=== PATIENT | female | born 1960 | race Caucasian/White ===

== ENCOUNTER 2017-12-17 22:24 | Emergency (ER) | payer MEDICAID ==
[~2017-12-17] VITALS: Ht 157.5 cm; Wt 72.0 kg
[~2017-12-17 22:24] MED LIST: ALBU6.7H INH; GABA600T2 PO; HYDR-3965 PO; MIRT15TA3 PO; ONDA8TAB9 PO; PARO30TA4 PO; PROP40TA72 PO; SUMA100T PO
[2017-12-17] MEDS ORDERED: HYDROcodone/acetaminophen 10/325mg tab PO ONE (23:45)
[2017-12-18] MEDS ORDERED: HYDR-569 PO (01:05)
[2017-12-18] MEDS ORDERED: IBUP-1984 PO (01:05)
[2017-12-18 01:27] VITALS: BP 148/87
== END 2017-12-18 01:30 | disposition home or self-care (01) ==
LOC: ER 22:25
DX: M17.12 Unilateral primary osteoarthritis, left knee (principal); M25.552 Pain in left hip; Z88.5 Allergy status to narcotic agent; Z79.899 Other long term (current) drug therapy
CPT/HCPCS: 73501; 73564; 99284

== ENCOUNTER 2018-02-06 18:28 | Emergency (ER) | payer MEDICAID ==
[~2018-02-06] VITALS: Ht 157.5 cm; Wt 64.2 kg
[~2018-02-06 18:28] MED LIST changes: -ALBU6.7H INH; +LORA1TAB PO; -PROP40TA72 PO
[2018-02-06 18:56] LABS: BASOPHILS % (AUTO) 0.3 % (0-1); EOSINOPHILS # (AUTO) 0.3 X10'3 (0-0.9); EOSINOPHILS % (AUTO) 2.3 % (0-6); HEMATOCRIT 39.2 % (35.0-45.0); HEMOGLOBIN 13.2 g/dl (12.0-16.0); LYMPHOCYTES # (AUTO) 2.8 X10'3 (1.1-4.8); LYMPHOCYTES % (AUTO) 22.7 % (21-51); MEAN CORPUSCULAR HEMOGLOBIN 28.8 PG (27.0-31.0); MEAN CORPUSCULAR HGB CONC 33.7 % (33.0-36.5); MEAN CORPUSCULAR VOLUME 85.6 FL (78-98); MEAN PLATELET VOLUME 7.5 FL (7.4-10.4); MONOCYTES % (AUTO) 8.3 % (2-12); NEUTROPHILS # (AUTO) 8.1 X10'3 (1.8-7.7); NEUTROPHILS % (AUTO) 66.4 % (42-75); PLATELET COUNT 273 X10'3 (140-440); RED BLOOD COUNT 4.58 X10'6 (4.20-5.60); RED CELL DISTRIBUTION WIDTH 16.7 % (11.5-14.5); WHITE BLOOD COUNT 12.2 X10'3 (4.5-11.0)
[2018-02-06 19:08] LABS: INR 0.9 INR; PARTIAL THROMBOPLASTIN TIME 27 SECONDS (22-32); PROTHROMBIN TIME 9.6 SECONDS (9.0-12.0)
[2018-02-06 19:13] LABS: ALANINE AMINOTRANSFERASE 54 U/L (12-78); ALBUMIN 3.4 G/DL (3.4-5.0); ALBUMIN/GLOBULIN RATIO 0.8 (1.1-1.5); ALKALINE PHOSPHATASE 147 IU/L (46-116); ANION GAP 12 (8-16); ASPARTATE AMINO TRANSFERASE 29 U/L (10-37); BILIRUBIN,TOTAL 0.3 MG/DL (0.1-1.0); BLOOD UREA NITROGEN 8 MG/DL (7-18); BUN/CREATININE RATIO 8.5 (6.6-38.0); CALCIUM 9.5 MG/DL (8.5-10.1); CHLORIDE 100 MMOL/L (99-107); CREATININE 0.94 MG/DL (0.40-0.90); GLUCOSE 96 MG/DL (70-104); POTASSIUM 3.6 MMOL/L (3.5-5.1); SODIUM 136 MMOL/L (135-145); TOTAL CARBON DIOXIDE 24.1 MMOL/L (24-32); TOTAL PROTEIN 7.6 G/DL (6.4-8.2); eGFR 62 ML/MIN
[2018-02-06 19:24] LABS: ETHANOL < 0.010 GM/DL (0.0-0.010)
[2018-02-06 19:32] LABS: CLARITY,URINE CLEAR (Clear); COLOR,URINE YELLOW (Yellow); GLUCOSE, URINE NEGATIVE (Neg); KETONES,URINE 15 mg/dl (Neg); LEUKOCYTE ESTERASE ,URINE SMALL (Neg); NITRITES, URINE NEGATIVE (Neg); OCCULT BLOOD,URINE TRACE-INTACT (Neg); PH,URINE 5.5 (4.8-8.0); PROTEIN,URINE TRACE mg/dl (Neg)
[2018-02-06 19:42] LABS: URINE AMPHETAMINE SCREEN POSITIVE (Neg); URINE BARBITUATE SCREEN NEGATIVE (Neg); URINE BENZODIAZEPINES SCREEN NEGATIVE (Neg); URINE CANNABINOID SCREEN NEGATIVE (Neg); URINE COCAINE SCREEN NEGATIVE (Neg); URINE METHADONE SCREEN NEGATIVE (Neg); URINE OPIATE SCREEN POSITIVE (Neg); URINE PHENCYCLIDINE SCREEN NEGATIVE (Neg)
[2018-02-06 19:55] LABS: UA COLLECTION TYPE CLN CATCH MIDSTREAM
[2018-02-06 19:57] LABS: WBC,URINE 0-4 /HPF (0-4)
[2018-02-06 19:58] LABS: BACTERIA,URINE FEW /HPF (Neg); SQUAMOUS EPITHELIAL CELL,UR FEW /LPF (FEW)
[2018-02-06 20:23] VITALS: BP 119/72
[2018-02-06] MEDS ORDERED: BACDS PO (20:43)
== END 2018-02-06 20:50 | disposition home or self-care (01) ==
LOC: ER 18:29
DX: S21.002A Unspecified open wound of left breast, initial encounter (principal); J44.1 Chronic obstructive pulmonary disease with (acute) exacerbation; F15.10 Other stimulant abuse, uncomplicated; E86.0 Dehydration; I10 Essential (primary) hypertension; Z88.5 Allergy status to narcotic agent; Z79.899 Other long term (current) drug therapy; X08.8XXA Exposure to other specified smoke, fire and flames, initial encounter; Y93.89 Activity, other specified; Y92.89 Other specified places as the place of occurrence of the external cause; Y99.8 Other external cause status
CPT/HCPCS: 36415; 71045; 80053; 80305; 80320; 81001; 84484; 85025; 85610; 85730; 93005; 99285

== ENCOUNTER 2018-05-22 05:55 | Day surgery (SDC) | payer MEDICAID ==
[2018-05-16 12:06] LABS: BASOPHILS # (AUTO) 0.1 X10'3 (0-0.2); BASOPHILS % (AUTO) 0.5 % (0-1); EOSINOPHILS # (AUTO) 0.4 X10'3 (0-0.9); EOSINOPHILS % (AUTO) 3.6 % (0-6); LYMPHOCYTES # (AUTO) 3.2 X10'3 (1.1-4.8); LYMPHOCYTES % (AUTO) 27.7 % (21-51); MEAN CORPUSCULAR HEMOGLOBIN 29.8 PG (27.0-31.0); MEAN CORPUSCULAR VOLUME 90.3 FL (78-98); MEAN PLATELET VOLUME 7.7 FL (7.4-10.4); MONOCYTES % (AUTO) 8.6 % (2-12); NEUTROPHILS # (AUTO) 6.9 X10'3 (1.8-7.7); NEUTROPHILS % (AUTO) 59.6 % (42-75); PRE OP HEMATOCRIT 40.3 % (35.0-45.0); PRE OP HEMOGLOBIN 13.3 g/dL (12.0-16.0); PRE OP PLATELET COUNT 250 X10'3 (140-440); RED BLOOD COUNT 4.46 X10'6 (4.20-5.60); RED CELL DISTRIBUTION WIDTH 14.5 % (11.5-14.5)
[2018-05-16 12:23] LABS: PRE OP INR 0.9 INR; PRE OP PROTIME 9.6 SECONDS (9.0-12.0)
[2018-05-16 12:24] LABS: ALBUMIN 3.5 G/DL (3.4-5.0); ALBUMIN/GLOBULIN RATIO 0.9 (1.1-1.5); ALKALINE PHOSPHATASE 109 IU/L (46-116); BLOOD UREA NITROGEN 11 MG/DL (7-18); BUN/CREATININE RATIO 14.9 (6.6-38.0); CALCIUM 9.3 MG/DL (8.5-10.1); CHLORIDE 104 MMOL/L (99-107); CREATININE 0.74 MG/DL (0.40-0.90); PRE OP ALT 23 U/L (30-65); PRE OP ANION GAP 9 (8-16); PRE OP AST 17 U/L (10-37); PRE OP BILIRUB, TOTAL 0.2 MG/DL (0.0-1.0); PRE OP GLUCOSE 78 MG/DL (70-104); PRE OP POTASSIUM 4.3 MMOL/L (3.4-5.1); PRE OP SODIUM 141 MMOL/L (135-145); TOTAL CARBON DIOXIDE 28.3 MMOL/L (24-32); TOTAL PROTEIN 7.4 G/DL (6.4-8.2); eGFR 81 ML/MIN
[~2018-05-22] VITALS: Ht 154.9 cm; Wt 63.2 kg
[2018-05-22] VITALS (9 sets, daily range): BP systolic 101–122; BP diastolic 65–94
[~2018-05-22 05:55] MED LIST changes: +ASPI81TA46 PO; +ATOR10TA70 PO; -GABA600T2 PO; -LORA1TAB PO; -MIRT15TA3 PO; -ONDA8TAB9 PO; +cefazolin/dext.iso 2gm/100 ML IV ONE; +famotidine 20mg tablet PO ONE; +ringers solution, lacted 1,000 ML IV SCH
[2018-05-22] MEDS ORDERED: LIDOcaine 1% (10mg/ml) 2ml vial ONE (06:10)
[2018-05-22] MEDS ORDERED: BUPIVAcaine/PF 2.5mg/ml (0.25%) 10ml vial ONE (06:41)
[2018-05-22] MEDS ORDERED: ROPIVAcaine 0.5% (5mg/ml) 30ml vial ONE (06:41)
[2018-05-22] MEDS ORDERED: LIDOcaine 1% 30ml preserv. free vial ONE ×2 (06:41→06:42)
[2018-05-22] MEDS ORDERED: LIDOcaine 0.5% W/epiNEPHrine 1:200,000 50ml vial IJ ONE (06:41)
[2018-05-22] MEDS ORDERED: epiNEPHrine 1 mg/ml inj ONE (06:42)
[2018-05-22] MEDS ORDERED: ketorolac trometh. 30mg/ml inj. ONE (06:43)
[2018-05-22] MEDS ORDERED: albuterol 2.5 MG/3 ML nebule NEB ONE (06:55)
[2018-05-22] MEDS ORDERED: fentaNYL/PF 50MCG/1 ML 2ML syringe ONE ×2 (07:19→07:39)
[2018-05-22] MEDS ORDERED: midazolam 2 mg/2 ml injection ONE (07:19)
[2018-05-22] MEDS ORDERED: meperidine/PF 50mg/ml syringe ONE (08:06)
[2018-05-22] MEDS ORDERED: morphine 4 MG/ML inj SYRINge IV PRN ×2 (08:15)
[2018-05-22] MEDS ORDERED: ringers solution, lacted 1,000 ML IV SCH (08:15)
[2018-05-22] MEDS ORDERED: ondansetron/PF 4mg/2ml inj IV PRN (08:15)
[2018-05-22] MEDS ORDERED: proCHLORperazine 10 MG/2 ml inj IV PRN (08:15)
[2018-05-22] MEDS ORDERED: meperidine/PF 25mg/ml syringe IV PRN ×3 (08:15)
[2018-05-22] MEDS ORDERED: propofol inj 20 ML IV ONE (08:18)
[2018-05-22] MEDS ORDERED: HYDROcodone/acetaminophen 10/325mg tab PO PRN (08:25)
== END 2018-05-22 09:18 | disposition home or self-care (01) ==
LOC: PAS 05:55
PROVIDERS: ATTEND Orthopaedic Surgery
DX: M23.222 Derangement of posterior horn of medial meniscus due to old tear or injury, left knee (principal); M23.362 Other meniscus derangements, other lateral meniscus, left knee; M22.42 Chondromalacia patellae, left knee; F17.210 Nicotine dependence, cigarettes, uncomplicated; J44.9 Chronic obstructive pulmonary disease, unspecified; I25.2 Old myocardial infarction; F41.8 Other specified anxiety disorders; M19.90 Unspecified osteoarthritis, unspecified site; I25.10 Atherosclerotic heart disease of native coronary artery without angina pectoris; I10 Essential (primary) hypertension; F10.21 Alcohol dependence, in remission; F15.11 Other stimulant abuse, in remission; Z88.5 Allergy status to narcotic agent; Z79.82 Long term (current) use of aspirin; Z86.74 Personal history of sudden cardiac arrest; Z79.891 Long term (current) use of opiate analgesic; Z79.1 Long term (current) use of non-steroidal anti-inflammatories (NSAID); Z79.899 Other long term (current) drug therapy; Z98.890 Other specified postprocedural states
CPT/HCPCS: 29880; 36415; 80053; 85025; 85610; 85730; 94640; 94760; A6449; J0171; J0690; J1885; J2175; J2250; J2704; J3010; J3490; J7120; A7000; J2795; J7030

== ENCOUNTER 2018-08-27 11:17 | Inpatient (IN) | payer MEDICAID ==
[~2018-08-27] VITALS: Ht 157.5 cm; Wt 62.7 kg
[~2018-08-27 11:17] MED LIST changes: -cefazolin/dext.iso 2gm/100 ML IV ONE; -famotidine 20mg tablet PO ONE; -ringers solution, lacted 1,000 ML IV SCH
[2018-08-27] MEDS ORDERED: NO HOME MEDS (11:50)
[2018-08-27] MEDS ORDERED: aspirin 81mg tab.chew PO ONE (12:10)
[2018-08-27 12:23] LABS: BASOPHILS # (AUTO) 0.1 X10'3 (0-0.2); BASOPHILS % (AUTO) 0.9 % (0-1); EOSINOPHILS # (AUTO) 0.2 X10'3 (0-0.9); EOSINOPHILS % (AUTO) 1.3 % (0-6); HEMATOCRIT 44.8 % (35.0-45.0); HEMOGLOBIN 14.7 g/dl (12.0-16.0); MEAN CORPUSCULAR HEMOGLOBIN 30.1 PG (27.0-31.0); MEAN CORPUSCULAR HGB CONC 32.8 g/dL (33.0-36.5); MEAN CORPUSCULAR VOLUME 91.7 FL (78-98); MEAN PLATELET VOLUME 8.6 FL (7.4-10.4); MONOCYTES % (AUTO) 7.4 % (2-12); NEUTROPHILS # (AUTO) 8.1 X10'3 (1.8-7.7); NEUTROPHILS % (AUTO) 60.4 % (42-75); PLATELET COUNT 340 X10'3 (140-440); RED BLOOD COUNT 4.89 X10'6 (4.20-5.60); RED CELL DISTRIBUTION WIDTH 13.3 % (11.5-14.5); WHITE BLOOD COUNT 13.4 X10'3 (4.5-11.0)
[2018-08-27 12:34] LABS: ALANINE AMINOTRANSFERASE 47 U/L (12-78); ALBUMIN 3.7 G/DL (3.4-5.0); ALBUMIN/GLOBULIN RATIO 0.8 (1.1-1.5); ALKALINE PHOSPHATASE 112 IU/L (46-116); ANION GAP 11 (8-16); ASPARTATE AMINO TRANSFERASE 45 U/L (10-37); BILIRUBIN,TOTAL 0.2 MG/DL (0.1-1.0); BLOOD UREA NITROGEN 15 MG/DL (7-18); CALCIUM 9.7 MG/DL (8.5-10.1); CHLORIDE 102 MMOL/L (99-107); CREATININE 0.94 MG/DL (0.40-0.90); GLUCOSE 76 MG/DL (70-104); POTASSIUM 3.8 MMOL/L (3.5-5.1); SODIUM 138 MMOL/L (135-145); TOTAL CARBON DIOXIDE 24.9 MMOL/L (24-32); TOTAL PROTEIN 8.1 G/DL (6.4-8.2); eGFR 62 ML/MIN
[2018-08-27 12:40] LABS: MAGNESIUM 1.9 MG/DL (1.5-2.4)
--- NOTE | 2018-08-27 14:00 | NUR ---
MD Rodriguez states the pt can have a diet without caffiene ordered a heart healthy diet for the pt.
--- NOTE | 2018-08-27 14:02 | NUR ---
diet ordered for pt
[2018-08-27] MEDS ORDERED: magnesium 4gm in 100ml NS 100 ML IV PRN (15:45)
[2018-08-27] MEDS ORDERED: potassium Cl 20 mEq SR tablet PO PRN ×2 (15:45)
[2018-08-27] MEDS ORDERED: acetaminophen 325mg tablet PO PRN (15:45)
[2018-08-27] MEDS ORDERED: potassium Cl 40MEQ/NS 500ml 500 ML IV PRN ×2 (15:45)
[2018-08-27] MEDS ORDERED: magnesium 2GM in 50ml NS 50 ML IV PRN (15:45)
[2018-08-27] MEDS ORDERED: magnesium Cl slow-release 64mg tablet PO PRN (15:45)
[2018-08-27] MEDS ORDERED: ondansetron/PF 4mg/2ml inj IV PRN (15:45)
[2018-08-27 17:04] LABS: URINE AMPHETAMINE SCREEN NEGATIVE (Neg); URINE BARBITUATE SCREEN NEGATIVE (Neg); URINE BENZODIAZEPINES SCREEN NEGATIVE (Neg); URINE CANNABINOID SCREEN NEGATIVE (Neg); URINE COCAINE SCREEN NEGATIVE (Neg); URINE METHADONE SCREEN NEGATIVE (Neg); URINE OPIATE SCREEN NEGATIVE (Neg); URINE PHENCYCLIDINE SCREEN NEGATIVE (Neg)
[2018-08-27] MEDS ORDERED: nicotine 14mg patch - 24hr TD ONE (17:25)
[2018-08-27] MEDS: heparin, porcine 5000 units/ml vial SQ SCH (20:40)
[2018-08-27 21:28] VITALS: BP 133/65
[2018-08-28] VITALS: BP 99/63
[2018-08-28 00:28] LABS: BASOPHILS # (AUTO) 0.1 X10'3 (0-0.2); BASOPHILS % (AUTO) 0.6 % (0-1); EOSINOPHILS # (AUTO) 0.2 X10'3 (0-0.9); HEMATOCRIT 41.9 % (35.0-45.0); HEMOGLOBIN 13.9 g/dl (12.0-16.0); LYMPHOCYTES # (AUTO) 4.3 X10'3 (1.1-4.8); LYMPHOCYTES % (AUTO) 38.1 % (21-51); MEAN CORPUSCULAR HEMOGLOBIN 30.3 PG (27.0-31.0); MEAN CORPUSCULAR HGB CONC 33.1 g/dL (33.0-36.5); MEAN CORPUSCULAR VOLUME 91.7 FL (78-98); MONOCYTES # (AUTO) 0.9 X10'3 (0-0.9); MONOCYTES % (AUTO) 8.1 % (2-12); NEUTROPHILS # (AUTO) 5.9 X10'3 (1.8-7.7); NEUTROPHILS % (AUTO) 51.2 % (42-75); PLATELET COUNT 287 X10'3 (140-440); RED BLOOD COUNT 4.56 X10'6 (4.20-5.60); RED CELL DISTRIBUTION WIDTH 13.2 % (11.5-14.5); WHITE BLOOD COUNT 11.4 X10'3 (4.5-11.0)
[2018-08-28 00:40] LABS: ALBUMIN 3.3 G/DL (3.4-5.0); ANION GAP 8 (8-16); BLOOD UREA NITROGEN 17 MG/DL (7-18); CALCIUM 9.5 MG/DL (8.5-10.1); CHLORIDE 104 MMOL/L (99-107); CREATININE 1.13 MG/DL (0.40-0.90); GLUCOSE 81 MG/DL (70-104); SODIUM 139 MMOL/L (135-145); TOTAL CARBON DIOXIDE 27.3 MMOL/L (24-32); eGFR 50 ML/MIN
--- NOTE | 2018-08-28 06:44 | NUR ---
Problems reprioritized. Patient report given, questions answered & plan of care reviewed with MANUEL Carrizales.
--- NOTE | 2018-08-28 06:52 | NUR ---
Patient in room [facility]. I have received report from Michelle Rodriguez RN and had the opportunity to ask questions and assume patient care.
[2018-08-28 07:29] VITALS: BP 98/56
[2018-08-28] MEDS: heparin, porcine 5000 units/ml vial SQ SCH ×2 (07:53→19:38)
[2018-08-28] MEDS: K and/or MAG REPLACEMENT MC SCH (08:00)
[2018-08-28] MEDS ORDERED: aminophylline 250mg/10ml inj. IV PRN ×2 (08:20→14:55)
[2018-08-28] MEDS ORDERED: regadenoson 0.4mg/5ml syringe IV ONE ×2 (08:20→14:55)
[2018-08-28] MEDS ORDERED: nitroGLYCERIN 0.4mg SUBLingual tab SL PRN ×2 (08:20→14:55)
[2018-08-28] MEDS ORDERED: metoprolol tartrate 1mg/ml inj IV PRN ×2 (08:20→14:55)
[2018-08-28] MEDS ORDERED: aspirin 325mg tablet PO SCH (08:30)
[2018-08-28 11:00] VITALS: BP 96/64
[2018-08-28] MEDS: atorvastatin 20mg tablet PO SCH (11:13)
[2018-08-28] MEDS ORDERED: LISI2.5T2 PO (14:51)
[2018-08-28] MEDS ORDERED: ATOR20TA66 PO (14:51)
[2018-08-28] MEDS ORDERED: ASPI-1265 PO (14:51)
--- NOTE | 2018-08-28 18:30 | NUR ---
Patient in room [facility]. I have received report from All JACKSON and had the opportunity to ask questions and assume patient care. pt on her phone, no signs of distress. call light and frq used belongings within reach. IV intact. will continue to monitor.
[2018-08-28 20:00] VITALS: BP 95/65
[2018-08-29] VITALS (11 sets, daily range): BP systolic 89–128; BP diastolic 50–66
[2018-08-29 06:15] LABS: BASOPHILS % (AUTO) 0.3 % (0-1); EOSINOPHILS # (AUTO) 0.2 X10'3 (0-0.9); EOSINOPHILS % (AUTO) 1.9 % (0-6); HEMATOCRIT 40.5 % (35.0-45.0); HEMOGLOBIN 13.6 g/dl (12.0-16.0); LYMPHOCYTES # (AUTO) 2.8 X10'3 (1.1-4.8); MEAN CORPUSCULAR HEMOGLOBIN 30.2 PG (27.0-31.0); MEAN CORPUSCULAR HGB CONC 33.7 g/dL (33.0-36.5); MEAN CORPUSCULAR VOLUME 89.6 FL (78-98); MEAN PLATELET VOLUME 7.7 FL (7.4-10.4); MONOCYTES # (AUTO) 0.8 X10'3 (0-0.9); MONOCYTES % (AUTO) 7.6 % (2-12); NEUTROPHILS # (AUTO) 7.2 X10'3 (1.8-7.7); NEUTROPHILS % (AUTO) 65.2 % (42-75); PLATELET COUNT 269 X10'3 (140-440); RED BLOOD COUNT 4.52 X10'6 (4.20-5.60)
--- NOTE | 2018-08-29 06:34 | NUR ---
Problems reprioritized. Patient report given, questions answered & plan of care reviewed with All RN. no signs of distress, resting comfortable. call light and frq used belongings within reach. IV intact
--- NOTE | 2018-08-29 06:44 | NUR ---
Patient in room [facility]. I have received report from Vesna JACKSON and had the opportunity to ask questions and assume patient care. Patient sleeping at this time
[2018-08-29] MEDS ORDERED: midazolam 2 mg/2 ml injection ONE (07:22)
[2018-08-29] MEDS ORDERED: heparin 1,000unit/ml 10ml vial 10 ML ONE (07:22)
[2018-08-29] MEDS ORDERED: iohexol 350MG/ML 100ml bottle IV ONE (07:22)
[2018-08-29] MEDS ORDERED: fentaNYL/PF 50MCG/1 ML 2ML syringe ONE (07:22)
[2018-08-29] MEDS ORDERED: LIDOcaine 1% (10mg/ml)w/preservative injection 20ml MDV ONE (07:22)
[2018-08-29] MEDS ORDERED: iohexol 350 MG/ML 50ML vial IV ONE (07:22)
[2018-08-29] MEDS ORDERED: nitroGLYCERIN-Tridil 50MG/D5W 250 ML IV ONE (07:22)
[2018-08-29] MEDS: heparin, porcine 5000 units/ml vial SQ SCH (08:00)
[2018-08-29] MEDS: K and/or MAG REPLACEMENT MC SCH (08:00)
[2018-08-29 08:10] LABS: ALBUMIN 3.3 G/DL (3.4-5.0); ANION GAP 11 (8-16); BLOOD UREA NITROGEN 21 MG/DL (7-18); BUN/CREATININE RATIO 26.9 (6.6-38.0); CALCIUM 9.1 MG/DL (8.5-10.1); CHLORIDE 105 MMOL/L (99-107); CREATININE 0.78 MG/DL (0.40-0.90); GLUCOSE 83 MG/DL (70-104); MAGNESIUM 1.9 MG/DL (1.5-2.4); POTASSIUM 4.1 MMOL/L (3.5-5.1); SODIUM 140 MMOL/L (135-145); TOTAL CARBON DIOXIDE 24.4 MMOL/L (24-32); eGFR 76 ML/MIN
[2018-08-29] MEDS: aspirin 81mg tab.chew PO SCH (08:30)
[2018-08-29] MEDS: atorvastatin 20mg tablet PO SCH (08:57)
--- NOTE | 2018-08-29 18:39 | NUR ---
Problems reprioritized. Patient report given, questions answered & plan of care reviewed with Pat RN.
[2018-08-29] MEDS ORDERED: HYDROcodone/acetaminophen 5mg/325mg tablet PO PRN (23:40)
[2018-08-29] MEDS ORDERED: diphenhydrAMINE 25mg capsule PO PRN (23:40)
[2018-08-30 06:02] LABS: BASOPHILS # (AUTO) 0.1 X10'3 (0-0.2); BASOPHILS % (AUTO) 0.7 % (0-1); EOSINOPHILS # (AUTO) 0.2 X10'3 (0-0.9); EOSINOPHILS % (AUTO) 2.5 % (0-6); HEMATOCRIT 35.6 % (35.0-45.0); LYMPHOCYTES # (AUTO) 3.5 X10'3 (1.1-4.8); LYMPHOCYTES % (AUTO) 39.1 % (21-51); MEAN CORPUSCULAR HEMOGLOBIN 30.3 PG (27.0-31.0); MEAN CORPUSCULAR HGB CONC 33.7 g/dL (33.0-36.5); MEAN CORPUSCULAR VOLUME 89.8 FL (78-98); MEAN PLATELET VOLUME 7.7 FL (7.4-10.4); MONOCYTES % (AUTO) 10.9 % (2-12); NEUTROPHILS # (AUTO) 4.2 X10'3 (1.8-7.7); NEUTROPHILS % (AUTO) 46.8 % (42-75); PLATELET COUNT 215 X10'3 (140-440); RED BLOOD COUNT 3.96 X10'6 (4.20-5.60); RED CELL DISTRIBUTION WIDTH 13.9 % (11.5-14.5)
[2018-08-30 06:06] LABS: ALBUMIN 2.9 G/DL (3.4-5.0); ANION GAP 9 (8-16); BLOOD UREA NITROGEN 15 MG/DL (7-18); BUN/CREATININE RATIO 18.3 (6.6-38.0); CALCIUM 8.7 MG/DL (8.5-10.1); CHLORIDE 105 MMOL/L (99-107); CHOL/HDL RATIO 3.7 (0.00-4.99); CHOLESTEROL 156 MG/DL (0-200); CREATININE 0.82 MG/DL (0.40-0.90); GLUCOSE 90 MG/DL (70-104); HDL CHOLESTEROL 42 MG/DL (35-60); LDL CHOLESTEROL 106 MG/DL (50-100); MAGNESIUM 1.8 MG/DL (1.5-2.4); POTASSIUM 3.9 MMOL/L (3.5-5.1); SODIUM 139 MMOL/L (135-145); TOTAL CARBON DIOXIDE 24.7 MMOL/L (24-32); TRIGLYCERIDES 80 MG/DL (20-135); eGFR 72 ML/MIN
--- NOTE | 2018-08-30 06:30 | NUR ---
report given to MANUEL Duque
--- NOTE | 2018-08-30 07:30 | NUR ---
Unable to assess urine at this time. pt. has not voided. Denies any symptoms or pain and states normal voiding. Addendum: 08/30/18 at 0734 by Dunia Marie RN Amended: Links added.
[2018-08-30 08:00] VITALS: BP 96/54
[2018-08-30] MEDS: K and/or MAG REPLACEMENT MC SCH (08:00)
[2018-08-30] MEDS: atorvastatin 20mg tablet PO SCH (09:07)
[2018-08-30] MEDS: aspirin 81mg tab.chew PO SCH (09:07)
[2018-08-30 11:00] VITALS: BP 92/55
--- NOTE | 2018-08-30 13:30 | NUR ---
PT. DISCHARGED IN A STABLE CONDITION. REVIEWED DISCHARGE PAPERWORK WITH PT. DISCUSSED AFTERCARE OF ANGIOGRAM SITE. DISCUSS NEW MEDICATIONS, PRESCRIPTIONS CALLED INTO PHARMACY AT [facility] [place] [address]. PATIENT KNOWS TO FOLLOW UP WITH DR. ARREDONDO AND HAVE ANOTHER CT SCAN DONE OF CHEST. DISCUSSED SMOKING CESSATION AND TECHNIQUES. PT. TELE DISCONTINUED CLEANED AND RETURNED, IV DISCONTINUED AND PRESSURE BANDAGE APPLIED, NO S/SX OF BLEEDING NOTED. PT. LEFT WITH HER BELONGING AMBULATING INDEPENDENTLY WITH A HOSPITAL VOLUNTER TO THE DOWNSTAIRS LOBBY TO BE ESCORTED TO A PRIVATE VEHICLE.
== END 2018-08-30 13:30 | disposition home or self-care (01) | DRG 191 ==
LOC: ER 11:18 → ED HOLD 15:44 → SUR 3N 18:48 → OBSVTOIN 08-29 07:00
PROVIDERS: ADMIT Internal Medicine; ATTEND Family Medicine
PROC: 4A023N7 Measurement of Cardiac Sampling and Pressure, Left Heart, Percutaneous Approach (ICD-10-PCS; principal; 2018-08-29)
PROC: B2111ZZ Fluoroscopy of Multiple Coronary Arteries using Low Osmolar Contrast (ICD-10-PCS; 2018-08-29)
PROC: B2151ZZ Fluoroscopy of Left Heart using Low Osmolar Contrast (ICD-10-PCS; 2018-08-29)
DX: I25.119 Atherosclerotic heart disease of native coronary artery with unspecified angina pectoris (principal); E78.00 Pure hypercholesterolemia, unspecified; E78.5 Hyperlipidemia, unspecified; F17.210 Nicotine dependence, cigarettes, uncomplicated; F32.9 Major depressive disorder, single episode, unspecified; F41.9 Anxiety disorder, unspecified; G43.909 Migraine, unspecified, not intractable, without status migrainosus; I10 Essential (primary) hypertension; J44.9 Chronic obstructive pulmonary disease, unspecified; Z79.82 Long term (current) use of aspirin; Z79.899 Other long term (current) drug therapy; I25.2 Old myocardial infarction; Z88.5 Allergy status to narcotic agent; Z71.6 Tobacco abuse counseling
CPT/HCPCS: 36415; 71045; 80048; 80053; 80061; 80305; 83735; 83880; 84484; 85025; 87070; 93005; 93306; 93458; 99152; 99153; 99285; A4620; A6257; C1769; G0378; J1644; J2001; J2250; J3010; J3490; Q0163; Q9967